=== PATIENT | female | born 1925 | race Caucasian/White ===

== ENCOUNTER 2016-08-21 19:02 | Inpatient (IN) ==
[2016-08-21] MEDS ORDERED: Cefuroxime PO 500 MG TABLET PO ONE (21:13)
[2016-08-21] MEDS ORDERED: Oseltamivir Phosphate 30 MG CAPSULE PO SCH (21:30)
[2016-08-21] MEDS ORDERED: Saline Nasal Spray 44 ML BOTTLE NS PRN (21:30)
[2016-08-21] MEDS ORDERED: D5% in Water 1,000 ML IV PRN ×2 (21:43→23:14)
[2016-08-21] MEDS ORDERED: Dextrose Gel 15 GM PO PRN ×4 (21:43→23:14)
[2016-08-21] MEDS ORDERED: *HR* Dextrose 50 % in Water (Syg) 50 ML SYRINGE IVP PRN ×2 (21:43→23:14)
[2016-08-21] MEDS ORDERED: Insulin DETEMIR 100 UNIT/ML X5UNITS SQ SCH (21:45)
[2016-08-21] MEDS: Lisinopril 20 MG TABLET PO SCH (22:49)
[2016-08-21] MEDS: Ipratropium/Albuterol Neb 3 ML IH SCH (23:04)
[2016-08-21] MEDS ORDERED: Insulin DETEMIR 100 UNIT/ML per UNIT SQ ONE (23:15)
[2016-08-22] MEDS: Ipratropium/Albuterol Neb 3 ML IH SCH ×4 (00:09→23:50)
[2016-08-22] MEDS: Ciprofloxacin/Dex *EAR* Susp 7.5 ML BOTTLE LEFT EAR SCH ×3 (00:32→20:50)
[2016-08-22] MEDS: *HR* Enoxaparin 40 MG/0.4 ML SYRINGE SQ SCH (05:29)
[2016-08-22 05:51] LABS: Basophils % 0.3 %; Eosinophils # 0.2 K/mcL (0.0-0.6); Eosinophils % 2.2 %; Hematocrit 30.3 % (35.3-44.9); Hemoglobin 9.7 g/dL (11.5-15.4); Immature Granulocytes % 0.3 % (0-4); Lymphocytes # 1.8 K/mcL (0.6-4.6); Lymphocytes % 23.9 %; Mean Corpuscular Hemoglobin 28.4 pg (28.0-33.3); Mean Corpuscular Volume 88.6 fL (83.0-100.0); Mean Platelet Volume 10.9 fL (9.4-12.4); Monocytes # 0.7 K/mcL (0.0-1.3); Monocytes % 9.2 %; Neutrophils # 4.9 K/mcL (1.6-8.9); Platelet Count 189 K/mcL (140-400); Red Blood Count 3.42 M/mcL (3.82-4.97); Red Cell Distribution Width 13.8 % (11.5-14.5); Segmented Neutrophils % 64.1 %
[2016-08-22 05:55] LABS: INR 1.2; Prothrombin Time 12.8 Seconds (9.4-12.1)
[2016-08-22 06:05] LABS: BUN/Creatinine Ratio 37 (6-26); Blood Urea Nitrogen 26 mg/dL (7-20); Calcium 8.5 mg/dL (8.6-10.8); Carbon Dioxide 24 mEq/L (19-29); Chloride 102 mEq/L (98-109); Glucose 199 mg/dL (70-99); Osmolality,Calculated 290 (280-300); Potassium 4.4 mEq/L (3.5-4.5); Sodium 135 mEq/L (136-145); eGFR For African Americans > 60 (> 60); eGFR For Non-African Americans > 60 (> 60)
[2016-08-22] MEDS: *HR* GlipiZIDE 5 MG TABLET PO SCH (08:00)
[2016-08-22] MEDS: Insulin LISPRO 300 UNITS/3 ML VIAL SQ SCH ×4 (08:01→20:51)
[2016-08-22] MEDS: Fluticasone Propionate Nasal 50 MCG/SPRAY BOTTLE NS PRN (08:02)
[2016-08-22] MEDS: Loratadine 10 MG TABLET PO SCH (08:08)
[2016-08-22] MEDS: Oseltamivir Phosphate 30 MG CAPSULE PO SCH ×2 (08:08→20:46)
[2016-08-22] MEDS: Lisinopril 20 MG TABLET PO SCH ×2 (08:08→20:46)
--- NOTE | 2016-08-22 13:36 | Internal Med History&Physical ---
Date of Encounter: 08/22/16 Time of Encounter: 13:34 Assessment and Plan (1) Physical deconditioning Current visit: Yes Status: Acute DT T to work on endurance, improving activity of daily living. (2) Influenza A Current visit: Yes Status: Acute Respiratory status much improved. Internal Medicine - H&P: HPI Admitted From: Intrahospital Transfer Plans for Post Hospital Care: Home History of present illness: Ms. Martin is a 89 year old female who initially presented to the ED with flu symptoms she was positive for influenza a period initial chest x-ray showed no pneumonia. She was admitted for medical management. She is transferred to this facility for PTOT to improve her endurance. Past Med Surg Social Fam HX - Past Medical History Medical history: cancer, diabetes, hypertension Psychiatric history: anxiety, depression - Past Surgical History Surgical History: breast surgery, other - Social History Smoking Status: Never smoker Smokeless Tobacco Status: No Alcohol use: none Drug use: none - Family History Father History Unknown: Yes Family Member Ethnicity: Non- Living Status: Hx Family Cardiac Disorders: Yes Internal Medicine - H&P: Meds Atenolol [Tenormin] 25 mg PO DAILY 08/18/16 [History] Fluticasone Propionate Nasal [Flonase] 1 spray NS BID 08/18/16 [History] Insulin Glargine,Hum.rec.anlog [Lantus Solostar] 28 units SQ DAILY 08/18/16 [ History] Lisinopril 40 mg PO BID 08/18/16 [History] Rosuvastatin Calcium 5 mg PO DAILY 08/18/16 [History] Cefuroxime PO [Ceftin] 500 mg PO Q12HR #10 tablet 08/21/16 [Rx] Chlordiazepoxide HCl 5 mg PO HS #30 08/21/16 [Rx] Ciprofloxacin/Dex *EAR* Susp [Ciprodex *EAR* Susp] 4 drop LEFT EAR BID #1 bottle 08/21/16 [Rx] GlipiZIDE [Glipizide] 10 mg PO DAILY #30 08/21/16 [Rx] GuaiFENesin ER [Mucinex] 600 mg PO BID #20 tbbp.12hr 08/21/16 [Rx] Insulin LISPRO [HumaLOG] 0 units SQ TIDAC #2 vial 08/21/16 [Rx] Ipratropium/Albuterol Neb [Duoneb] 3 ml IH TID #40 inhsol 08/21/16 [Rx] Loratadine [Claritin] 5 mg PO DAILY #30 tablet 08/21/16 [Rx] Oseltamivir Phosphate [Tamiflu] 30 mg PO BID #10 capsule 08/21/16 [Rx] Saline Nasal [place] [[place] Nasal [place]] 2 spray NS Q2H PRN #2 bottle 08/21/16 [Rx ] Allergies acetaminophen [From Tylenol] Allergy (Verified 08/19/16 06:32) Vomiting latex Allergy (Verified 08/18/16 14:06) Hives Penicillins Allergy (Verified 08/18/16 14:06) Hives Sulfa (Sulfonamide Antibiotics) Allergy (Verified 08/18/16 14:06) Hives All Systems PM: A 10-system review of systems was performed and is negative for pertinent findings except as documented above in the HPI. - Constitutional Constitutional: chills, falls, lethargy, weakness - Cardiovascular Cardiovascular ROS IM: no chest pain, no diaphoresis, no dyspnea, no lightheadedness, no palpitations, no syncope - Respiratory Respiratory: cough, no dyspnea, no wheezing, no excessive phlegm production - Gastrointestinal Gastrointestinal: no abdominal pain, no diarrhea, no hematemesis, no hematochezia, no melena, no nausea, no vomiting - Musculoskeletal Musculoskeletal ROS IM: no numbness, no tingling - Neurological Neurological ROS: no confusion, no convulsions, no focal weakness, no numbness, no tingling, no tremor(s) - Constitutional Vitals: Temp Pulse Resp BP Pulse Ox 98.8 F 83 18 151/80 98 08/22/16 07:00 08/22/16 07:00 08/22/16 07:00 08/22/16 07:00 08/22/16 07:00 General appearance: Present: A&O X 3, pleasant, no acute distress - Respiratory Respiratory exam: Present: CTAB, rales. Absent: accessory muscle use, rhonchi, wheezes - Cardiovascular Cardiovascular exam: Present: RRR, +S1, +S2. Absent: diastolic murmur, gallop, rubs, systolic murmur - GI/Abdominal GI/Abdominal exam: Present: normal bowel sounds, soft, no peritoneal signs. Absent: distended, tenderness - Extremities Exam Extremities exam: Present: warm, radial pulses palpable and symetrical. Absent : calf tenderness, cyanotic, pedal edema Internal Med - H&P Results - Labs CBC & Chem 7: 08/22/16 04:45 08/22/16 04:45 Labs: Short CBC 08/22/16 Range/Units 04:45 WBC 7.6 (4.3-11.1) K/mcL Hgb 9.7 L (11.5-15.4) g/dL Hct 30.3 L (35.3-44.9) % Plt Count 189 (140-400) K/mcL Neutrophils # 4.9 (1.6-8.9) K/mcL BMP 08/22/16 04:45 Sodium 135 L Potassium 4.4 Chloride 102 Carbon Dioxide 24 BUN 26 H Creatinine 0.71 Glucose 199 H Calcium 8.5 L - VTE Documentation of Mechanical Device: Graduated compression elastic hosiery
[2016-08-22] MEDS: Insulin DETEMIR 100 UNIT/ML X5UNITS SQ SCH (20:50)
[2016-08-23] MEDS: *HR* Enoxaparin 40 MG/0.4 ML SYRINGE SQ SCH (06:27)
[2016-08-23] MEDS: Ipratropium/Albuterol Neb 3 ML IH SCH ×3 (06:28→21:23)
[2016-08-23] MEDS: Insulin LISPRO 300 UNITS/3 ML VIAL SQ SCH ×4 (07:45→21:23)
[2016-08-23] MEDS: Oseltamivir Phosphate 30 MG CAPSULE PO SCH ×2 (09:01→21:21)
[2016-08-23] MEDS: Fluticasone Propionate Nasal 50 MCG/SPRAY BOTTLE NS PRN (09:07)
[2016-08-23] MEDS: Lisinopril 20 MG TABLET PO SCH ×2 (09:08→17:22)
[2016-08-23] MEDS: Ciprofloxacin/Dex *EAR* Susp 7.5 ML BOTTLE LEFT EAR SCH ×2 (09:08→21:20)
[2016-08-23] MEDS: Loratadine 10 MG TABLET PO SCH (09:09)
--- NOTE | 2016-08-23 10:33 | Internal Med Progress Note ---
Date of Encounter: 08/23/16 Time of Encounter: 10:32 - Assessment and plan (1) Physical deconditioning Current Visit: Yes Status: Acute Assessment and plan: PT OT working on improving gait balance endurance (2) Influenza A Current Visit: Yes Status: Acute Assessment and plan: Doing well on Tamiflu - Time Spent With Patient less than 15 minutes - Subjective Interval history: No shortness of breath. No cough. No chest pain. - Constitutional Vitals: Temp Pulse Resp BP Pulse Ox 97.1 F L 83 18 156/87 98 08/23/16 07:26 08/23/16 07:26 08/23/16 07:26 08/23/16 07:26 08/23/16 09:26 General appearance: Present: A&O X 3, pleasant, no acute distress - Respiratory Respiratory exam: Present: rales. Absent: accessory muscle use, rhonchi, wheezes - Cardiovascular Cardiovascular exam: Present: RRR, +S1, +S2. Absent: diastolic murmur, gallop, rubs, systolic murmur - GI/Abdominal GI/Abdominal exam: Present: normal bowel sounds, soft, no peritoneal signs. Absent: distended, tenderness - Extremities Exam Extremities exam: Present: warm, radial pulses palpable and symetrical. Absent : calf tenderness, cyanotic, pedal edema Internal Medicine: Result - Labs CBC & Chem 7: 08/22/16 04:45 08/22/16 04:45 - ABG Interpretation ABG results: PT/INR, D-dimer PT 12.8 Seconds (9.4-12.1) H 08/22/16 04:45 - VTE Documentation of Mechanical Device: Graduated compression elastic hosiery Consult Discharge Plan - Plan Referrals: Romelia Foote DO [Primary Care Provider] -
[2016-08-23] MEDS: *HR* GlipiZIDE 5 MG TABLET PO SCH (12:30)
[2016-08-23] MEDS: Insulin DETEMIR 100 UNIT/ML X5UNITS SQ SCH (21:20)
[2016-08-24] MEDS: Ibuprofen 400 MG TABLET PO PRN ×3 (06:02→21:49)
[2016-08-24] MEDS: Ipratropium/Albuterol Neb 3 ML IH SCH ×3 (06:02→21:49)
[2016-08-24] MEDS: *HR* Enoxaparin 40 MG/0.4 ML SYRINGE SQ SCH (06:02)
[2016-08-24 06:16] LABS: Basophils % 0.1 %; Eosinophils # 0.2 K/mcL (0.0-0.6); Eosinophils % 2.7 %; Hematocrit 29.9 % (35.3-44.9); Hemoglobin 9.3 g/dL (11.5-15.4); Immature Granulocytes % 0.4 % (0-4); Lymphocytes # 1.9 K/mcL (0.6-4.6); Lymphocytes % 25.6 %; Mean Corpuscular HGB Conc 31.1 g/dL (31.6-35.5); Mean Corpuscular Volume 90.1 fL (83.0-100.0); Mean Platelet Volume 10.6 fL (9.4-12.4); Monocytes # 0.7 K/mcL (0.0-1.3); Monocytes % 9.1 %; Neutrophils # 4.7 K/mcL (1.6-8.9); Platelet Count 219 K/mcL (140-400); Red Blood Count 3.32 M/mcL (3.82-4.97); Red Cell Distribution Width 13.7 % (11.5-14.5); Segmented Neutrophils % 62.1 %
[2016-08-24 06:19] LABS: INR 1.3; Prothrombin Time 13.9 Seconds (9.4-12.1)
[2016-08-24 06:20] LABS: Activated Partial Thrombo Time 24.8 Seconds (26.0-36.0)
[2016-08-24 06:26] LABS: BUN/Creatinine Ratio 40 (6-26); Blood Urea Nitrogen 26 mg/dL (7-20); Calcium 8.7 mg/dL (8.6-10.8); Carbon Dioxide 27 mEq/L (19-29); Chloride 103 mEq/L (98-109); Glucose 82 mg/dL (70-99); Osmolality,Calculated 292 (280-300); Potassium 4.4 mEq/L (3.5-4.5); Sodium 139 mEq/L (136-145); eGFR For African Americans > 60 (> 60); eGFR For Non-African Americans > 60 (> 60)
[2016-08-24] MEDS: *HR* GlipiZIDE 5 MG TABLET PO SCH ×2 (07:51→13:02)
[2016-08-24] MEDS: Ciprofloxacin/Dex *EAR* Susp 7.5 ML BOTTLE LEFT EAR SCH ×2 (08:02→21:48)
[2016-08-24] MEDS: Insulin LISPRO 300 UNITS/3 ML VIAL SQ SCH ×4 (08:02→21:50)
[2016-08-24] MEDS: Loratadine 10 MG TABLET PO SCH (08:02)
[2016-08-24] MEDS: Lisinopril 20 MG TABLET PO SCH ×2 (08:08→16:58)
--- NOTE | 2016-08-24 14:54 | Internal Med Progress Note ---
Date of Encounter: 08/24/16 Time of Encounter: 14:52 - Assessment and plan (1) Influenza A Current Visit: Yes Status: Acute Assessment and plan: Patient seems to be getting over the flu and is perking up. Over get her advanced age 89 and this takes more time than normal. She does have daughters to check: She has a around the necklace-type device encase she needs emergency help. Neighbors check on her. In the family make sure she has groceries etc. (2) Physical deconditioning Current Visit: Yes Status: Acute Assessment and plan: She slowly increasing her strength and endurance (3) Cough Current Visit: No Status: Acute Assessment and plan: Cough is improved - Time Spent With Patient less than 15 minutes - Subjective Interval history: This patient was transferred for deconditioning after being diagnosed with the flu at the acute center. She is improved to stable color is good she has improved her eating and is been a febrile for 24 hours - Constitutional Vitals: Temp Pulse Resp BP Pulse Ox 98.9 F 87 18 151/78 97 08/24/16 07:13 08/24/16 07:13 08/24/16 07:13 08/24/16 07:13 08/24/16 07:13 General appearance: Present: A&O X 3, pleasant, no acute distress - Head Head exam: Present: normal inspection - Neck Neck exam general surgery: Present: supple, trachea midline. Absent: lymphadenopathy - Respiratory Respiratory exam: Present: CTAB. Absent: accessory muscle use, rales, rhonchi, wheezes - Cardiovascular Cardiovascular exam: Present: RRR, +S1, +S2. Absent: diastolic murmur, gallop, rubs, systolic murmur Internal Medicine: Result - Labs CBC & Chem 7: 08/24/16 05:00 08/24/16 05:00 Labs: Short CBC 08/24/16 Range/Units 05:00 WBC 7.5 (4.3-11.1) K/mcL Hgb 9.3 L (11.5-15.4) g/dL Hct 29.9 L (35.3-44.9) % Plt Count 219 (140-400) K/mcL Neutrophils # 4.7 (1.6-8.9) K/mcL BMP 08/24/16 05:00 Sodium 139 Potassium 4.4 Chloride 103 Carbon Dioxide 27 BUN 26 H Creatinine 0.65 Glucose 82 Calcium 8.7 Lab looks pretty good - ABG Interpretation ABG results: PT/INR, D-dimer PT 13.9 Seconds (9.4-12.1) H 08/24/16 05:00 - Impressions Impressions Chest X-Ray 08/24/16 06:00 IMPRESSION: No acute process. D/ / Vargas Purdy MD / Vargas Purdy MD Interpreting Provider: Vargas Purdy MD - VTE Documentation of Mechanical Device: Graduated compression elastic hosiery Consult Discharge Plan - Plan Referrals: Romelia Foote DO [Primary Care Provider] -
[2016-08-24] MEDS: Insulin DETEMIR 100 UNIT/ML X5UNITS SQ SCH (21:50)
[2016-08-25] MEDS: Ipratropium/Albuterol Neb 3 ML IH SCH ×3 (06:25→23:00)
[2016-08-25] MEDS: *HR* Enoxaparin 40 MG/0.4 ML SYRINGE SQ SCH (06:25)
[2016-08-25] MEDS: Lisinopril 20 MG TABLET PO SCH ×2 (08:45→17:27)
[2016-08-25] MEDS: Insulin LISPRO 300 UNITS/3 ML VIAL SQ SCH ×4 (08:48→20:51)
[2016-08-25] MEDS: Loratadine 10 MG TABLET PO SCH (08:59)
[2016-08-25] MEDS: Ibuprofen 400 MG TABLET PO PRN (11:39)
[2016-08-25] MEDS: *HR* GlipiZIDE 5 MG TABLET PO SCH (11:39)
[2016-08-25] MEDS: Ciprofloxacin/Dex *EAR* Susp 7.5 ML BOTTLE LEFT EAR SCH ×2 (11:40→20:51)
--- NOTE | 2016-08-25 13:38 | Internal Med Progress Note ---
Date of Encounter: 08/25/16 Time of Encounter: 13:36 - Assessment and plan (1) Influenza A Current Visit: Yes Status: Acute Assessment and plan: Patient is improved and is slowly working on her strength and endurance (2) Physical deconditioning Current Visit: Yes Status: Acute Assessment and plan: He goes without saying were improving her physical deconditioning but I do not think she is done much (3) Cough Current Visit: No Status: Acute Assessment and plan: I have appreciated her coughing now. - Time Spent With Patient less than 15 minutes - Subjective Interval history: She is doing well. She only complains of a little bit of muscle discomfort left side of her neck. Going to apply K pad to that. Otherwise I think she will be close to being discharged. She is slowly working with her therapist. I suspect she has not done much at home in some time - Constitutional Vitals: Temp Pulse Resp BP Pulse Ox 97.9 F 80 18 145/82 97 08/25/16 07:09 08/25/16 07:09 08/25/16 07:09 08/25/16 07:09 08/25/16 07:09 General appearance: Present: A&O X 3, pleasant, no acute distress - Head Head exam: Present: atraumatic, normal inspection, normocephalic - Neck Neck exam general surgery: Present: supple, trachea midline. Absent: lymphadenopathy - Respiratory Respiratory exam: Present: CTAB. Absent: accessory muscle use, rales, rhonchi, wheezes - Cardiovascular Cardiovascular exam: Present: RRR, +S1, +S2. Absent: diastolic murmur, gallop, rubs, systolic murmur Internal Medicine: Result - Labs CBC & Chem 7: 08/24/16 05:00 08/24/16 05:00 Labs: Lab looks good - ABG Interpretation ABG results: PT/INR, D-dimer PT 13.9 Seconds (9.4-12.1) H 08/24/16 05:00 - Impressions Impressions Chest X-Ray 08/24/16 06:00 IMPRESSION: No acute process. D/ / Vargsa Purdy MD / Vargas Purdy MD Interpreting Provider: Vargas Purdy MD - VTE Documentation of Mechanical Device: Graduated compression elastic hosiery Consult Discharge Plan - Plan Referrals: Romelia Foote DO [Primary Care Provider] -
[2016-08-25] MEDS: Fluticasone Propionate Nasal 50 MCG/SPRAY BOTTLE NS PRN (15:51)
[2016-08-25] MEDS: Insulin DETEMIR 100 UNIT/ML X5UNITS SQ SCH (20:50)
[2016-08-26] MEDS: Ibuprofen 400 MG TABLET PO PRN (03:40)
[2016-08-26] MEDS: *HR* Enoxaparin 40 MG/0.4 ML SYRINGE SQ SCH (03:41)
[2016-08-26] MEDS: Ipratropium/Albuterol Neb 3 ML IH SCH ×3 (06:40→21:17)
[2016-08-26] MEDS: Insulin LISPRO 300 UNITS/3 ML VIAL SQ SCH ×4 (09:58→21:25)
[2016-08-26] MEDS: Loratadine 10 MG TABLET PO SCH (10:03)
[2016-08-26] MEDS: Ciprofloxacin/Dex *EAR* Susp 7.5 ML BOTTLE LEFT EAR SCH ×2 (10:03→21:17)
[2016-08-26] MEDS: Fluticasone Propionate Nasal 50 MCG/SPRAY BOTTLE NS PRN (10:04)
[2016-08-26] MEDS: Lisinopril 20 MG TABLET PO SCH ×2 (10:04→16:52)
[2016-08-26] MEDS: *HR* GlipiZIDE 5 MG TABLET PO SCH (12:22)
--- NOTE | 2016-08-26 13:38 | Internal Med Progress Note ---
Date of Encounter: 08/26/16 Time of Encounter: 13:37 - Assessment and plan (1) Influenza A Current Visit: Yes Status: Acute Assessment and plan: Status post flu with deconditioning is walking the length of the abad with the therapist to the gym. (2) Physical deconditioning Current Visit: Yes Status: Acute Assessment and plan: Obviously the cause for rehabilitation (3) Cough Current Visit: No Status: Acute Assessment and plan: Much improved - Time Spent With Patient less than 15 minutes - Subjective Interval history: She is doing well. She only complains of a little bit of muscle discomfort left side of her neck. Going to apply K pad to that. Otherwise I think she will be close to being discharged. She is slowly working with her therapist. I suspect she has not done much at home in some time - Constitutional Vitals: Temp Pulse Resp BP Pulse Ox 98.8 F 91 18 150/54 89 L 08/26/16 07:10 08/26/16 07:10 08/26/16 07:10 08/26/16 07:10 08/26/16 07:10 General appearance: Present: A&O X 3, pleasant, no acute distress - Head Head exam: Present: atraumatic, normocephalic - Neck Neck exam general surgery: Present: supple, trachea midline. Absent: lymphadenopathy - Respiratory Respiratory exam: Present: CTAB. Absent: accessory muscle use, rales, rhonchi, wheezes - Cardiovascular Cardiovascular exam: Present: RRR, +S1, +S2. Absent: diastolic murmur, gallop, rubs, systolic murmur Internal Medicine: Result - Labs CBC & Chem 7: 08/24/16 05:00 08/24/16 05:00 Labs: Lab is stable - ABG Interpretation ABG results: PT/INR, D-dimer PT 13.9 Seconds (9.4-12.1) H 08/24/16 05:00 - VTE Documentation of Mechanical Device: Graduated compression elastic hosiery Consult Discharge Plan - Plan Referrals: Romelia Foote DO [Primary Care Provider] -
[2016-08-26] MEDS: Insulin DETEMIR 100 UNIT/ML X5UNITS SQ SCH (21:18)
[2016-08-27] MEDS: Ipratropium/Albuterol Neb 3 ML IH SCH ×3 (05:57→22:30)
[2016-08-27] MEDS: *HR* Enoxaparin 40 MG/0.4 ML SYRINGE SQ SCH (05:57)
[2016-08-27] MEDS: Insulin LISPRO 300 UNITS/3 ML VIAL SQ SCH ×4 (08:10→22:30)
[2016-08-27] MEDS: Loratadine 10 MG TABLET PO SCH (08:25)
[2016-08-27] MEDS: Lisinopril 20 MG TABLET PO SCH ×2 (08:28→18:01)
[2016-08-27] MEDS: Ciprofloxacin/Dex *EAR* Susp 7.5 ML BOTTLE LEFT EAR SCH ×2 (08:28→22:30)
[2016-08-27] MEDS: Fluticasone Propionate Nasal 50 MCG/SPRAY BOTTLE NS PRN (08:43)
[2016-08-27] MEDS: *HR* GlipiZIDE 5 MG TABLET PO SCH (12:30)
--- NOTE | 2016-08-27 13:42 | Internal Med Progress Note ---
Date of Encounter: 08/27/16 Time of Encounter: 13:40 - Assessment and plan (1) Influenza A Current Visit: Yes Status: Acute Assessment and plan: This is resolved the patient's recovering from deconditioning (2) Physical deconditioning Current Visit: Yes Status: Acute Assessment and plan: The reason patient is here (3) Cough Current Visit: No Status: Acute Assessment and plan: Offering is improved immensely - Time Spent With Patient less than 15 minutes - Subjective Interval history: Patient is continuing to improve slowly. Should have very hard of hearing - Constitutional Vitals: Temp Pulse Resp BP Pulse Ox 98.5 F 99 16 138/87 92 L 08/27/16 07:15 08/27/16 07:15 08/27/16 07:15 08/27/16 07:15 08/27/16 07:15 General appearance: Present: A&O X 3, pleasant, no acute distress - Head Head exam: Present: atraumatic, normal inspection, normocephalic - Neck Neck exam general surgery: Present: supple, trachea midline. Absent: lymphadenopathy - Respiratory Respiratory exam: Present: CTAB. Absent: accessory muscle use, rales, rhonchi, wheezes - Cardiovascular Cardiovascular exam: Present: RRR, +S1, +S2. Absent: diastolic murmur, gallop, rubs, systolic murmur Internal Medicine: Result - Labs CBC & Chem 7: 08/24/16 05:00 08/24/16 05:00 Labs: Labs looking good - ABG Interpretation ABG results: PT/INR, D-dimer PT 13.9 Seconds (9.4-12.1) H 08/24/16 05:00 - VTE Documentation of Mechanical Device: Graduated compression elastic hosiery Consult Discharge Plan - Plan Referrals: Romelia Foote DO [Primary Care Provider] -
[2016-08-27 14:49] LABS: Bilirubin,Urine Negative (Negative); Blood,Urine Moderate (Negative); Clarity,Urine Cloudy (Clear); Color,Urine Yellow (Yellow); Glucose,Urine (UA) Normal (Normal); Ketones,Urine Negative (Negative); Leukocyte Esterase,Urine Large (Negative); Nitrite,Urine Negative (Negative); PH,Urine 5.5 pH Units (5.0-8.0); Protein,Urine 100 mg/dL (Neg-Trace); Specific Gravity,Urine 1.025 (1.010-1.025); Urobilinogen,Urine Normal (Normal)
[2016-08-27 14:57] LABS: Squamous Epithelial Cell,Urine Many per lpf (None-Few); WBC,Urine TNTC per hpf (0-3)
[2016-08-27 14:58] LABS: Bacteria,Urine Moderate per hpf (None-Few); RBC,Urine 0-3 per hpf (0-3)
[2016-08-27] MEDS: Insulin DETEMIR 100 UNIT/ML X5UNITS SQ SCH (22:30)
[2016-08-27] MEDS: Ibuprofen 400 MG TABLET PO PRN (22:30)
[2016-08-28] MEDS: *HR* Enoxaparin 40 MG/0.4 ML SYRINGE SQ SCH (06:04)
[2016-08-28] MEDS: Ipratropium/Albuterol Neb 3 ML IH SCH ×3 (06:04→22:04)
[2016-08-28] MEDS: Insulin LISPRO 300 UNITS/3 ML VIAL SQ SCH ×4 (08:16→22:07)
[2016-08-28] MEDS: Loratadine 10 MG TABLET PO SCH (08:20)
[2016-08-28] MEDS: Fluticasone Propionate Nasal 50 MCG/SPRAY BOTTLE NS PRN (08:21)
[2016-08-28] MEDS: Ciprofloxacin/Dex *EAR* Susp 7.5 ML BOTTLE LEFT EAR SCH ×2 (08:21→22:04)
[2016-08-28] MEDS: Lisinopril 20 MG TABLET PO SCH ×2 (08:40→17:42)
[2016-08-28] MEDS: *HR* GlipiZIDE 5 MG TABLET PO SCH (12:12)
[2016-08-28] MEDS: Insulin DETEMIR 100 UNIT/ML X5UNITS SQ SCH (22:03)
[2016-08-28] MEDS: Ibuprofen 400 MG TABLET PO PRN (22:04)
[2016-08-29] MEDS: Ipratropium/Albuterol Neb 3 ML IH SCH ×3 (04:55→22:31)
[2016-08-29] MEDS: *HR* Enoxaparin 40 MG/0.4 ML SYRINGE SQ SCH (04:55)
[2016-08-29] MEDS: Insulin LISPRO 300 UNITS/3 ML VIAL SQ SCH ×4 (08:51→22:30)
[2016-08-29] MEDS: Fluticasone Propionate Nasal 50 MCG/SPRAY BOTTLE NS PRN (10:05)
[2016-08-29] MEDS: Ibuprofen 400 MG TABLET PO PRN ×2 (10:05→22:30)
[2016-08-29] MEDS: Ciprofloxacin/Dex *EAR* Susp 7.5 ML BOTTLE LEFT EAR SCH ×2 (10:05→22:30)
[2016-08-29] MEDS: Loratadine 10 MG TABLET PO SCH (10:06)
[2016-08-29] MEDS: Lisinopril 20 MG TABLET PO SCH ×2 (10:12→17:34)
--- NOTE | 2016-08-29 11:51 | Internal Med Progress Note ---
Date of Encounter: 08/29/16 Time of Encounter: 11:50 - Assessment and plan (1) Physical deconditioning Current Visit: Yes Status: Acute Assessment and plan: PT and OT making improvement in terms of her balance, gait, transfer, endurance and overall ADL. (2) Influenza A Current Visit: Yes Status: Acute - Time Spent With Patient less than 15 minutes - Subjective Interval history: No shortness of breath. No cough. No chest pain. Complains of increasing puffiness around her lower eyelid - Constitutional Vitals: Temp Pulse Resp BP Pulse Ox 97.9 F 84 16 125/78 98 08/29/16 07:00 08/29/16 07:00 08/29/16 07:00 08/29/16 07:00 08/29/16 07:00 General appearance: Present: A&O X 3, pleasant, no acute distress - Respiratory Respiratory exam: Present: CTAB. Absent: accessory muscle use, rales, rhonchi, wheezes - Cardiovascular Cardiovascular exam: Present: RRR, +S1, +S2. Absent: diastolic murmur, gallop, rubs, systolic murmur - GI/Abdominal GI/Abdominal exam: Present: normal bowel sounds, soft, no peritoneal signs. Absent: distended, tenderness - Extremities Exam Extremities exam: Present: warm, radial pulses palpable and symetrical. Absent : calf tenderness, cyanotic, pedal edema Internal Medicine: Result - Labs CBC & Chem 7: 08/24/16 05:00 08/24/16 05:00 - ABG Interpretation ABG results: PT/INR, D-dimer PT 13.9 Seconds (9.4-12.1) H 08/24/16 05:00 - VTE Documentation of Mechanical Device: Graduated compression elastic hosiery Consult Discharge Plan - Plan Referrals: Romelia Foote DO [Primary Care Provider] -
[2016-08-29] MEDS: *HR* GlipiZIDE 5 MG TABLET PO SCH (13:04)
[2016-08-29] MEDS: Insulin DETEMIR 100 UNIT/ML X5UNITS SQ SCH (22:30)
--- NOTE | 2016-08-30 01:51 | Internal Med Progress Note ---
Date of Encounter: 08/30/16 Time of Encounter: 09:06 - Assessment and plan (1) Physical deconditioning Current Visit: Yes Status: Acute Assessment and plan: PT and OT making improvement in terms of her balance, gait, transfer, endurance and overall ADL. (2) Influenza A Current Visit: Yes Status: Acute Assessment and plan: This is resolved the patient's recovering from deconditioning - Time Spent With Patient less than 15 minutes - Subjective Interval history: No shortness of breath. No cough. No chest pain. Complains of increasing puffiness around her lower eyelid - Constitutional Vitals: Temp Pulse Resp BP Pulse Ox 97.6 F 96 14 165/85 99 08/29/16 19:52 08/29/16 19:52 08/29/16 19:52 08/29/16 19:52 08/29/16 19:52 General appearance: Present: A&O X 3, pleasant, no acute distress - Respiratory Respiratory exam: Present: CTAB. Absent: accessory muscle use, rales, rhonchi, wheezes - Cardiovascular Cardiovascular exam: Present: RRR, +S1, +S2. Absent: diastolic murmur, gallop, rubs, systolic murmur - GI/Abdominal GI/Abdominal exam: Present: normal bowel sounds, soft, no peritoneal signs. Absent: distended, tenderness - Extremities Exam Extremities exam: Present: warm, radial pulses palpable and symetrical. Absent : calf tenderness, cyanotic, pedal edema Internal Medicine: Result - Labs CBC & Chem 7: 08/24/16 05:00 08/24/16 05:00 - ABG Interpretation ABG results: PT/INR, D-dimer PT 13.9 Seconds (9.4-12.1) H 08/24/16 05:00 - VTE Documentation of Mechanical Device: Graduated compression elastic hosiery Consult Discharge Plan - Plan Referrals: Romelia Foote DO [Primary Care Provider] -
[2016-08-30] MEDS: *HR* Enoxaparin 40 MG/0.4 ML SYRINGE SQ SCH (05:35)
[2016-08-30] MEDS: Ipratropium/Albuterol Neb 3 ML IH SCH ×3 (05:35→21:55)
[2016-08-30] MEDS: Ibuprofen 400 MG TABLET PO PRN ×2 (09:33→21:55)
[2016-08-30] MEDS: Loratadine 10 MG TABLET PO SCH (09:33)
[2016-08-30] MEDS: Insulin LISPRO 300 UNITS/3 ML VIAL SQ SCH ×4 (09:38→21:55)
[2016-08-30] MEDS: Ciprofloxacin/Dex *EAR* Susp 7.5 ML BOTTLE LEFT EAR SCH ×2 (09:38→21:54)
[2016-08-30] MEDS: Lisinopril 20 MG TABLET PO SCH ×2 (09:42→17:37)
[2016-08-30] MEDS: *HR* GlipiZIDE 5 MG TABLET PO SCH (12:22)
[2016-08-30] MEDS: Insulin DETEMIR 100 UNIT/ML X5UNITS SQ SCH (21:55)
[2016-08-31 05:43] LABS: INR 1.2; Prothrombin Time 12.8 Seconds (9.4-12.1)
[2016-08-31 05:44] LABS: Basophils % 0.4 %; Eosinophils # 0.3 K/mcL (0.0-0.6); Eosinophils % 3.5 %; Hematocrit 28.9 % (35.3-44.9); Hemoglobin 9.2 g/dL (11.5-15.4); Immature Granulocytes % 1.3 % (0-4); Lymphocytes # 2.2 K/mcL (0.6-4.6); Lymphocytes % 25.8 %; Mean Corpuscular HGB Conc 31.8 g/dL (31.6-35.5); Mean Corpuscular Volume 88.1 fL (83.0-100.0); Monocytes # 0.8 K/mcL (0.0-1.3); Monocytes % 8.9 %; Neutrophils # 5.1 K/mcL (1.6-8.9); Platelet Count 301 K/mcL (140-400); Red Blood Count 3.28 M/mcL (3.82-4.97); Red Cell Distribution Width 13.7 % (11.5-14.5); Segmented Neutrophils % 60.1 %
[2016-08-31 05:46] LABS: Activated Partial Thrombo Time 28.1 Seconds (26.0-36.0)
[2016-08-31 05:55] LABS: BUN/Creatinine Ratio 34 (6-26); Blood Urea Nitrogen 22 mg/dL (7-20); Calcium 8.8 mg/dL (8.6-10.8); Carbon Dioxide 23 mEq/L (19-29); Chloride 110 mEq/L (98-109); Glucose 97 mg/dL (70-99); Osmolality,Calculated 297 (280-300); Potassium 4.4 mEq/L (3.5-4.5); Sodium 142 mEq/L (136-145); eGFR For African Americans > 60 (> 60); eGFR For Non-African Americans > 60 (> 60)
[2016-08-31] MEDS: *HR* Enoxaparin 40 MG/0.4 ML SYRINGE SQ SCH (06:05)
[2016-08-31] MEDS: Ipratropium/Albuterol Neb 3 ML IH SCH ×3 (06:05→21:55)
[2016-08-31] MEDS: Ciprofloxacin/Dex *EAR* Susp 7.5 ML BOTTLE LEFT EAR SCH ×2 (08:26→21:51)
[2016-08-31] MEDS: Loratadine 10 MG TABLET PO SCH (08:26)
[2016-08-31] MEDS: Insulin LISPRO 300 UNITS/3 ML VIAL SQ SCH ×4 (08:27→21:52)
[2016-08-31] MEDS: Fluticasone Propionate Nasal 50 MCG/SPRAY BOTTLE NS PRN (08:30)
[2016-08-31] MEDS: Lisinopril 20 MG TABLET PO SCH ×2 (08:30→17:36)
[2016-08-31] MEDS: *HR* GlipiZIDE 5 MG TABLET PO SCH (12:32)
--- NOTE | 2016-08-31 13:48 | Internal Med Progress Note ---
Date of Encounter: 08/31/16 Time of Encounter: 13:47 - Assessment and plan (1) Influenza A Current Visit: Yes Status: Acute Assessment and plan: Resolving (2) Physical deconditioning Current Visit: Yes Status: Acute Assessment and plan: Improving (3) Cough Current Visit: No Status: Acute Assessment and plan: Resolved - Time Spent With Patient less than 15 minutes - Subjective Interval history: Patient walking R Zelaya - Constitutional Vitals: Temp Pulse Resp BP Pulse Ox 97.4 F L 90 16 153/76 96 08/31/16 07:00 08/31/16 07:00 08/31/16 07:00 08/31/16 07:00 08/31/16 07:00 General appearance: Present: A&O X 3, pleasant, no acute distress - Head Head exam: Present: atraumatic, normal inspection, normocephalic - Neck Neck exam general surgery: Present: supple, trachea midline. Absent: lymphadenopathy - Respiratory Respiratory exam: Present: CTAB. Absent: accessory muscle use, rales, rhonchi, wheezes - Cardiovascular Cardiovascular exam: Present: RRR, +S1, +S2. Absent: diastolic murmur, gallop, rubs, systolic murmur - GI/Abdominal GI/Abdominal exam: Present: normal bowel sounds, soft, no peritoneal signs. Absent: distended, tenderness Internal Medicine: Result - Labs CBC & Chem 7: 08/31/16 05:10 08/31/16 05:10 Labs: Short CBC 08/31/16 Range/Units 05:10 WBC 8.5 (4.3-11.1) K/mcL Hgb 9.2 L (11.5-15.4) g/dL Hct 28.9 L (35.3-44.9) % Plt Count 301 (140-400) K/mcL Neutrophils # 5.1 (1.6-8.9) K/mcL BMP 08/31/16 05:10 Sodium 142 Potassium 4.4 Chloride 110 H Carbon Dioxide 23 BUN 22 H Creatinine 0.64 Glucose 97 Calcium 8.8 Lab is stable - ABG Interpretation ABG results: PT/INR, D-dimer PT 12.8 Seconds (9.4-12.1) H 08/31/16 05:10 - VTE Documentation of Mechanical Device: Graduated compression elastic hosiery Consult Discharge Plan - Plan Referrals: Romelia Foote DO [Primary Care Provider] - Cholo Machado MD [Partnered Physician] - 09/02/16 10:15 am
[2016-08-31] MEDS: Insulin DETEMIR 100 UNIT/ML X5UNITS SQ SCH (21:52)
[2016-08-31] MEDS: Ibuprofen 400 MG TABLET PO PRN (21:53)
[2016-09-01] MEDS: Ipratropium/Albuterol Neb 3 ML IH SCH ×3 (06:49→21:33)
[2016-09-01] MEDS: *HR* Enoxaparin 40 MG/0.4 ML SYRINGE SQ SCH (06:49)
[2016-09-01] MEDS: Insulin LISPRO 300 UNITS/3 ML VIAL SQ SCH ×4 (07:51→21:17)
[2016-09-01] MEDS: Ibuprofen 400 MG TABLET PO PRN ×3 (07:58→21:33)
[2016-09-01] MEDS: Ciprofloxacin/Dex *EAR* Susp 7.5 ML BOTTLE LEFT EAR SCH ×2 (07:59→21:33)
[2016-09-01] MEDS: Loratadine 10 MG TABLET PO SCH (07:59)
[2016-09-01] MEDS: Lisinopril 20 MG TABLET PO SCH ×2 (08:00→18:42)
[2016-09-01] MEDS: Fluticasone Propionate Nasal 50 MCG/SPRAY BOTTLE NS PRN (08:01)
--- NOTE | 2016-09-01 13:16 | Internal Med Progress Note ---
Date of Encounter: 09/01/16 Time of Encounter: 13:14 - Assessment and plan (1) Influenza A Current Visit: Yes Status: Acute Assessment and plan: She has recovered from the foot (2) Physical deconditioning Current Visit: Yes Status: Acute Assessment and plan: Slowly getting stronger and increasing her endurence (3) Cough Current Visit: No Status: Acute Assessment and plan: Office seems pretty well resolved - Time Spent With Patient less than 15 minutes - Subjective Interval history: Patient walking length of the abad and cooperating with the therapist. I did get a consult tomorrow for her to see ENT because she has multiple complaints about sinus trouble. - Constitutional Vitals: Temp Pulse Resp BP Pulse Ox 97.6 F 85 16 170/51 95 09/01/16 07:00 09/01/16 07:00 09/01/16 07:00 09/01/16 07:00 09/01/16 07:00 General appearance: Present: A&O X 3, pleasant, no acute distress - Head Head exam: Present: atraumatic, normal inspection, normocephalic - Neck Neck exam general surgery: Present: supple, trachea midline. Absent: lymphadenopathy - Respiratory Respiratory exam: Present: CTAB. Absent: accessory muscle use, rales, rhonchi, wheezes - Cardiovascular Cardiovascular exam: Present: RRR, +S1, +S2. Absent: diastolic murmur, gallop, rubs, systolic murmur - GI/Abdominal GI/Abdominal exam: Present: normal bowel sounds, soft, no peritoneal signs. Absent: distended, tenderness Internal Medicine: Result - Labs CBC & Chem 7: 08/31/16 05:10 08/31/16 05:10 Labs: Lab is stable - ABG Interpretation ABG results: PT/INR, D-dimer PT 12.8 Seconds (9.4-12.1) H 08/31/16 05:10 - VTE Documentation of Mechanical Device: Graduated compression elastic hosiery Consult Discharge Plan - Plan Referrals: Romelia Foote DO [Primary Care Provider] - Cholo Machado MD [Partnered Physician] - 09/02/16 10:15 am
[2016-09-01] MEDS: *HR* GlipiZIDE 5 MG TABLET PO SCH (14:51)
[2016-09-01] MEDS: Insulin DETEMIR 100 UNIT/ML X5UNITS SQ SCH (21:33)
[2016-09-02] MEDS: Ipratropium/Albuterol Neb 3 ML IH SCH (06:36)
[2016-09-02] MEDS: *HR* Enoxaparin 40 MG/0.4 ML SYRINGE SQ SCH (06:36)
[2016-09-02 07:13] VITALS: BP 164/84
[2016-09-02] MEDS: Insulin LISPRO 300 UNITS/3 ML VIAL SQ SCH ×2 (09:29→12:37)
[2016-09-02] MEDS: Loratadine 10 MG TABLET PO SCH (09:30)
[2016-09-02] MEDS: Fluticasone Propionate Nasal 50 MCG/SPRAY BOTTLE NS PRN (09:31)
[2016-09-02] MEDS: Lisinopril 20 MG TABLET PO SCH (09:31)
[2016-09-02] MEDS: Ciprofloxacin/Dex *EAR* Susp 7.5 ML BOTTLE LEFT EAR SCH (09:31)
--- NOTE | 2016-09-02 11:55 | Discharge Summary ---
Date of Encounter: 09/02/16 Time of Encounter: 11:53 - Discharge Diagnosis (1) Influenza A Priority: Primary Status: Acute Comments: Abrahan floyd is over the flu and was deconditioned due to her advanced age etc. She has 2 daughters are going to help her she will be discharged home today (2) Physical deconditioning Priority: Primary Status: Acute Comments: Patient was deconditioned due to her advanced age (3) Cough Priority: Secondary Status: Acute Comments: I think the cough is resolved and heard more - Discharge Medications Home Medications: Atenolol [Tenormin] 25 mg PO DAILY 08/18/16 [History] Fluticasone Propionate Nasal [Flonase] 1 spray NS BID 08/18/16 [History] Insulin Glargine,Hum.rec.anlog [Lantus Solostar] 28 units SQ DAILY 08/18/16 [ History] Lisinopril 40 mg PO BID 08/18/16 [History] Rosuvastatin Calcium 5 mg PO DAILY 08/18/16 [History] Cefuroxime PO [Ceftin] 500 mg PO Q12HR #10 tablet 08/21/16 [Rx] Chlordiazepoxide HCl 5 mg PO HS #30 08/21/16 [Rx] Ciprofloxacin/Dex *EAR* Susp [Ciprodex *EAR* Susp] 4 drop LEFT EAR BID #1 bottle 08/21/16 [Rx] GlipiZIDE [Glipizide] 10 mg PO DAILY #30 08/21/16 [Rx] GuaiFENesin ER [Mucinex] 600 mg PO BID #20 tbbp.12hr 08/21/16 [Rx] Insulin LISPRO [HumaLOG] 0 units SQ TIDAC #2 vial 08/21/16 [Rx] Ipratropium/Albuterol Neb [Duoneb] 3 ml IH TID #40 inhsol 08/21/16 [Rx] Loratadine [Claritin] 5 mg PO DAILY #30 tablet 08/21/16 [Rx] Oseltamivir Phosphate [Tamiflu] 30 mg PO BID #10 capsule 08/21/16 [Rx] Saline Nasal [place] [[place] Nasal [place]] 2 spray NS Q2H PRN #2 bottle 08/21/16 [Rx ] Allergies/Adverse Reactions: Allergies acetaminophen [From Tylenol] Allergy (Verified 08/19/16 06:32) Vomiting latex Allergy (Verified 08/18/16 14:06) Hives Penicillins Allergy (Verified 08/18/16 14:06) Hives Sulfa (Sulfonamide Antibiotics) Allergy (Verified 08/18/16 14:06) Hives Date of admission: 08/21/16 19:02 Primary care physician: Nick Mckenzie Consults: 08/22/16 01:19 Consult to Occupational Therapy [CONS] Routine Comment: therapy Consult to Physical Therapy [CONS] Routine Comment: therapy Consult to Recreational Therapy [CONS] Routine Comment: Consult to Manager Of Financial Reporting [CONS] Routine Reason for SW Consult: therapy 09/02/16 10:15 Consult to ENT [CONS] Routine Consulting Provider: [facility] [place] Reason for Consult: sinus Call Completed: Yes Discharging clinician: Reese Cruz Anticipated date of discharge: 09/02/16 - Patient Status Disposition: Home, Self-Care Condition: Good Functional capacity at discharge: uses cane/walker Overall status at discharge: patient is progressing back to baseline - Discharge Instructions Follow Up With: Romelia Foote DO [Primary Care Provider] - 09/14/16 1:45 pm (4 month follow -up) Cholo Machado MD [Partnered Physician] - 09/02/16 10:15 am - Diet and Activity Activity: ambulate only with your walker Diet: diabetic diet Interval History: Patient was brought to the rehabilitation unit status post deconditioning. Hospital course: Ms. Martin is a 89 year old female Patient is walking with the abad several times a day cooperating eating and his really responded well to rehabilitation - Time Spent with Patient Total time spent providing and/or coordinating discharge services: Less than 30 minutes - Constitutional Vitals: Temp Pulse Resp BP Pulse Ox 98.2 F 89 17 164/84 99 09/02/16 07:00 09/02/16 07:00 09/02/16 07:00 09/02/16 07:00 09/02/16 07:00 General appearance: Present: A&O X 3, pleasant, no acute distress - Head Head exam: Present: atraumatic, normal inspection, normocephalic - ENT ENT exam: Present: normal external ear exam (Patient was complaining everyone about sinus trouble. Side ENT consult today. His impression was congested nose and no further aggressive treatment needed to be done.) - Neck Neck exam general surgery: Present: supple, trachea midline. Absent: lymphadenopathy - Respiratory Respiratory exam: Present: CTAB. Absent: accessory muscle use, rales, rhonchi, wheezes - Cardiovascular Cardiovascular exam: Present: RRR, +S1, +S2. Absent: diastolic murmur, gallop, rubs, systolic murmur - VTE Documentation of Mechanical Device: Graduated compression elastic hosiery
[2016-09-02] MEDS: *HR* GlipiZIDE 5 MG TABLET PO SCH (12:38)
--- NOTE | 2016-09-02 13:38 | Physician Discharge Referral ---
Home Health/Hosp Referral Info Transfer to: Home Health Provider in Charge Post Discharge: PCP - Diagnosis (1) Influenza A Priority: Primary Status: Acute (2) Physical deconditioning Priority: Secondary Status: Acute (3) Cough Priority: Secondary Status: Acute - Respiratory Orders Smoking Cessation: Smoking cessation has been advised. For more information, call the [place] Tobacco Quit Line at 7-427-THBK-NOW. - Transfer Medications Home Medications: Atenolol [Tenormin] 25 mg PO DAILY 08/18/16 [History] Fluticasone Propionate Nasal [Flonase] 1 spray NS BID 08/18/16 [History] Insulin Glargine,Hum.rec.anlog [Lantus Solostar] 28 units SQ DAILY 08/18/16 [ History] Lisinopril 40 mg PO BID 08/18/16 [History] Rosuvastatin Calcium 5 mg PO DAILY 08/18/16 [History] Cefuroxime PO [Ceftin] 500 mg PO Q12HR #10 tablet 08/21/16 [Rx] Chlordiazepoxide HCl 5 mg PO HS #30 08/21/16 [Rx] Ciprofloxacin/Dex *EAR* Susp [Ciprodex *EAR* Susp] 4 drop LEFT EAR BID #1 bottle 08/21/16 [Rx] GlipiZIDE [Glipizide] 10 mg PO DAILY #30 08/21/16 [Rx] GuaiFENesin ER [Mucinex] 600 mg PO BID #20 tbbp.12hr 08/21/16 [Rx] Insulin LISPRO [HumaLOG] 0 units SQ TIDAC #2 vial 08/21/16 [Rx] Ipratropium/Albuterol Neb [Duoneb] 3 ml IH TID #40 inhsol 08/21/16 [Rx] Loratadine [Claritin] 5 mg PO DAILY #30 tablet 08/21/16 [Rx] Oseltamivir Phosphate [Tamiflu] 30 mg PO BID #10 capsule 08/21/16 [Rx] Saline Nasal [place] [[place] Nasal [place]] 2 spray NS Q2H PRN #2 bottle 08/21/16 [Rx ] Allergies/Adverse Reactions: Allergies acetaminophen [From Tylenol] Allergy (Verified 08/19/16 06:32) Vomiting latex Allergy (Verified 08/18/16 14:06) Hives Penicillins Allergy (Verified 08/18/16 14:06) Hives Sulfa (Sulfonamide Antibiotics) Allergy (Verified 08/18/16 14:06) Hives Certification: Further, I certify that my clinical findings support that this patient is homebound (i.e. absences from home require considerable and taxing effort and are for medical reasons or baptism services or infrequently or short duration when for other reasons) because: Homebound Reason: Patient requires assistance of a person or device to safely leave home Attestation: My signature below is to certify that this patient is under my care and that I, or nurse practitioner, or a physician's academic support assistant working with me, has a face-to -face encounter with this patient.
== END 2016-09-02 14:30 | disposition home health service (06) | DRG 884 ==
LOC: INPGRE 19:02
PROVIDERS: ADMIT Internal Medicine; ATTEND Internal Medicine